=== PATIENT | female | born 1990 | race African-American/Black ===

== ENCOUNTER 2016-08-18 21:55 | Emergency (ER) | payer OTHER, MEDICAID ==
[~2016-08-18] VITALS: Ht 162.6 cm; Wt 120.0 kg
[~2016-08-18 21:55] MED LIST: BACT2OIN TOP; CEPH500C3 PO; [UNRECOGNIZED DRUG - REMARK] PO
[2016-08-18 22:00] VITALS: BP 138/104; PULSE 74; RESP 16; TEMP 98.7; O2SAT 98
[2016-08-18] MEDS ORDERED: SODIUM CHLORIDE 0.9% FLUSH 5 ML FLUSH IVF PRN (22:00)
[2016-08-18 22:04] VITALS: RESP 16; O2SAT 98
[2016-08-18 22:37] LABS: AUTOMATED NEUTROPHIL # 5.9 TH/MM3 (1.8-7.7); BASOPHIL # 0.1 TH/MM3 (0-0.2); BASOPHIL % 0.5 % (0.0-2.0); EOSINOPHIL % 0.3 % (0.0-4.0); HEMATOCRIT 36.6 % (35.0-46.0); HEMO FLAGS DIFF FINAL; LYMPH % 40.5 % (9.0-44.0); LYMPHOCYTE # 4.4 TH/MM3 (1.0-4.8); MEAN CELL VOLUME 77.2 FL (80.0-100.0); MEAN CORPUSCULAR HEMOGLOBIN 26.9 PG (27.0-34.0); MEAN CORPUSCULAR HGB CONC 34.8 % (32.0-36.0); MONO % 4.5 % (0.0-8.0); NEUT % 54.2 % (16.0-70.0); PLATELET COUNT 299 TH/MM3 (150-450); RED BLOOD COUNT 4.74 MIL/MM3 (4.00-5.30); WHITE BLOOD COUNT 10.8 TH/MM3 (4.0-11.0)
[2016-08-18 22:38] LABS: APTT (PATIENT) 28.9 SEC (24.3-30.1); PROTHROMBIN TIME - PATIENT 11.4 SEC (9.8-11.6)
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
[2016-08-18] MEDS ORDERED: IOHEXOL 350 MG/ML 10 ML VIAL (for RAD DIAG) IV ONE (23:26)
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
[2016-08-18 23:39] LABS: ANION GAP 6 MEQ/L (5-15); BICARBONATE 24.2 MEQ/L (21.0-32.0); BLOOD UREA NITROGEN 9 MG/DL (7-18); CHLORIDE 109 MEQ/L (98-107); GLOMERULAR FILTRATION RATE 94 ML/MIN (>89); POTASSIUM 3.7 MEQ/L (3.5-5.1); SODIUM (NA) 139 MEQ/L (136-145)
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
[2016-08-18 23:42] LABS: ALKALINE PHOSPHATASE 68 U/L (45-117); ALT (GPT) 13 U/L (10-53); AST (GOT) 12 U/L (15-37); TOTAL BILIRUBIN ADULT 0.6 MG/DL (0.2-1.0)
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
[2016-08-19] MEDS ORDERED: NAPR500 PO (01:06)
== END 2016-08-19 02:04 | disposition home or self-care (01) ==
LOC: NEPE 21:55
DX: M54.2 Cervicalgia (principal); I10 Essential (primary) hypertension; F17.210 Nicotine dependence, cigarettes, uncomplicated; F10.10 Alcohol abuse, uncomplicated
CPT/HCPCS: 70450; 71010; 71250; 72125; 72131; 74177; 80053; 84703; 85025; 85610; 85730; 86850; 86900; 86901; 99284; Q9967; 82435; 82565; 82947; 84132; 84295; 84520

== ENCOUNTER 2017-03-24 17:42 | Emergency (ER) | payer MEDICAID ==
[~2017-03-24] VITALS: Ht 165.1 cm; Wt 115.0 kg
[~2017-03-24 17:42] MED LIST changes: -BACT2OIN TOP; -CEPH500C3 PO; +NAPR500 PO; -[UNRECOGNIZED DRUG - REMARK] PO
[2017-03-24 17:44] VITALS: BP 183/123; PULSE 88; RESP 20; TEMP 98.6; O2SAT 99
--- NOTE | 2017-03-24 17:58 | PD ---
HPI Chief Complaint: Hypertension Time Seen by Provider: 17:57 Travel History International Travel<30 days: No Contact w/Intl Traveler<30days: No Traveled to known affect area: No History of Present Illness HPI 26-year-old female came to the emergency room with history of headache, neck pain and hypertension. Patient says the headache has been going on for past few days and today she was at work in [employer] when she got dizzy and almost passed out. When she came here her blood pressure was 183 systolic to 1 teens diastolic. Patient says she has history of hypertension but not on any medications since she does not have a primary care right now. She has an appointment with a primary care physician in 2 weeks but meanwhile she has been symptomatic with the high blood pressure. REPLACED BY [facility] Past Medical History Narrative Medical List of her past medical, surgical, social and family history is reviewed from the nursing note. Cardiovascular Problems: Yes (HTN) Diminished Hearing: No Hypertension: Yes ?: Not LMP: 03/24/17 : 8 Para: 3 Miscarriage: 5 Past Surgical History Section: No Gynecologic Surgery: Yes ( cervical cerclage) Social History Alcohol Use: Yes Tobacco Use: Yes (3-4 PER DAY) Substance Use: No Allergies-Medications (Allergen,Severity, Reaction): Coded Allergies: No Known Allergies (Unverified , 03/24/17) Comments No known drug allergies. Reported Meds & Prescriptions Reported Meds & Active Scripts Active Lisinopril 10 Mg Tab 10 Mg PO DAILY Narrative Medication List of her home medications reviewed from the nursing note. Review of Systems Except as stated in HPI: all other systems reviewed are Neg Physical Exam Narrative GENERAL: Awake, alert, obese, mild distress SKIN: Focused skin assessment warm/dry. HEAD: Atraumatic. Normocephalic. EYES: Pupils equal and round. No scleral icterus. No injection or drainage. ENT: No nasal bleeding or discharge. Mucous membranes pink and moist. NECK: Trachea midline. No JVD. CARDIOVASCULAR: Regular rate and rhythm. No murmur appreciated. RESPIRATORY: No accessory muscle use. Clear to auscultation. Breath sounds equal bilaterally. GASTROINTESTINAL: Abdomen soft, non-tender, nondistended. Hepatic and splenic margins not palpable. MUSCULOSKELETAL: No obvious deformities. No clubbing. No cyanosis. No edema. NEUROLOGICAL: Awake and alert. No obvious cranial nerve deficits. Motor grossly within normal limits. Normal speech. PSYCHIATRIC: Appropriate mood and affect; insight and judgment normal. Data Data Last Documented VS Vital Signs Date Time Temp Pulse Resp B/P (MAP) Pulse Ox O2 Delivery O2 Flow Rate FiO2 03/24/17 19:29 03/24/17 19:12 71 18 99 Room Air 03/24/17 17:44 98.6 Orders Orders Lisinopril (Prinivil) (03/24/17 18:15) Basic Metabolic Panel (Bmp) (03/24/17 18:09) Labs Laboratory Tests Test 03/24/17 18:15 Blood Urea Nitrogen 9 MG/DL Creatinine 0.68 MG/DL Random Glucose 92 MG/DL Calcium Level 8.6 MG/DL Sodium Level 139 MEQ/L Potassium Level 3.6 MEQ/L Chloride Level 107 MEQ/L Carbon Dioxide Level 24.9 MEQ/L Anion Gap 7 MEQ/L Estimat Glomerular Filtration Rate 125 ML/MIN MDM Medical Decision Making Medical Screen Exam Complete: Yes Emergency Medical Condition: Yes Medical Record Reviewed: Yes Differential Diagnosis Essential hypertension, morbid obesity, poor compliance Narrative Course 7:30 PM patient was given 10 mg of lisinopril and her blood pressure is slowly going down. I just saw her walking back into her room from the restroom and she was more steady on her feet. Procedures EKG Prior to Arrival: No Diagnosis Primary Impression: Hypertension Qualified Codes: I10 - Essential (primary) hypertension Additional Impressions: Headache Qualified Codes: R51 - Headache Poor compliance with medication Referrals: Primary Care Physician Additional Instructions: Please take the medications like is supposed to without stopping them. ER is not the place to get prescription refills or get chronic illness treated. Should really have a primary care who should continue prescribing a medication and do time he follow up's. However if symptoms worsen please return to the ER. Keep a log for your blood pressure prior to seeing your primary care. Med/Other Pt SpecificInfo: Prescription(s) given Scripts Lisinopril (Lisinopril) 10 Mg Tab 10 MG PO DAILY, #30 TAB 0 Refills Prov: Marian Hyde MD 03/24/17 Disposition: 01 DISCHARGE HOME Condition: Stable Marian Hyde MD Mar 24, 2017 17:57
[2017-03-24 18:07] VITALS: BP 176/111; PULSE 83; RESP 20
[2017-03-24] MEDS ORDERED: LISINOPRIL 10 MG TAB PO ONE (18:15)
[2017-03-24 19:11] LABS: BICARBONATE 24.9 MEQ/L (21.0-32.0); POTASSIUM 3.6 MEQ/L (3.5-5.1)
[2017-03-24 19:12] VITALS: BP 155/94; PULSE 71; RESP 18; O2SAT 99
[2017-03-24] MEDS ORDERED: LISI10TA3 PO (19:21)
== END 2017-03-24 19:35 | disposition home or self-care (01) ==
LOC: NEPD 17:42
DX: I10 Essential (primary) hypertension (principal); R51 Headache; M54.2 Cervicalgia; Z72.0 Tobacco use
CPT/HCPCS: 80048; 99283

== ENCOUNTER 2017-08-17 22:13 | Emergency (ER) | payer MEDICAID ==
[2017-08-17] MEDS: LISINOPRIL 10 MG TAB PO (22:57)
[2017-08-17] MEDS: PROCHLORPERAZINE INJ 10 MG/2 ML VIAL IV PUSH (23:06)
[2017-08-18] MEDS: KETOROLAC TROMETHAMINE 30 MG/ML (IVP) VIAL IV PUSH (01:31)
== END 2017-08-18 02:50 | disposition home or self-care (01) ==
LOC: NEPE 22:13
DX: R51 Headache (principal); R11.0 Nausea; I10 Essential (primary) hypertension; F17.200 Nicotine dependence, unspecified, uncomplicated
CPT/HCPCS: 96374; 96375; 99284-25

== ENCOUNTER 2017-09-10 08:13 | Emergency (ER) | payer MEDICAID ==
[~2017-09-10] VITALS: Ht 165.1 cm; Wt 105.0 kg
[~2017-09-10 08:13] MED LIST changes: +LISI10TA3 PO; -NAPR500 PO
[2017-09-10 08:14] VITALS: BP 146/79; PULSE 88; RESP 14; TEMP 98.3; O2SAT 99
[2017-09-10] MEDS ORDERED: DOXY100C PO (09:21)
--- NOTE | 2017-09-10 09:21 | PD ---
HPI Chief Complaint: Skin Problem Time Seen by Provider: 09:09 Travel History International Travel<30 days: No Contact w/Intl Traveler<30days: No Traveled to known affect area: No History of Present Illness HPI The patient is a 27-year-old [place] female who presents to the emergency department for a lesion to the right groin. The patient states she had unprotected sex 2 weeks ago, now complains of a lesion on the right inguinal canal which is approximately 1 inch in diameter, slightly elevated, nonpleuritic, associated mild pain in the right inguinal canal. The patient denies any vaginal discharge or bleeding. She denies any history genital warts. She days any drainage from the affected area. She denies any associated fever, chills, or sweats. She denies nausea, vomiting, abdominal pain, or back pain. PFSH Past Medical History Cardiovascular Problems: Yes (HTN) Diminished Hearing: No Hypertension: Yes ?: Unknown LMP: 08/08/17 : 8 Para: 3 Miscarriage: 5 Past Surgical History Section: No Gynecologic Surgery: Yes ( cervical cerclage) Social History Alcohol Use: Yes Tobacco Use: Yes (3-4 PER DAY) Substance Use: No Allergies-Medications (Allergen,Severity, Reaction): Coded Allergies: No Known Allergies (Unverified , 03/24/17) Reported Meds & Prescriptions Reported Meds & Active Scripts Active Lisinopril 10 Mg Tab 10 Mg PO DAILY Lisinopril 10 Mg Tab 10 Mg PO DAILY Review of Systems Except as stated in HPI: all other systems reviewed are Neg General / Constitutional: No: Fever Gastrointestinal: No: Nausea, Vomiting, Abdominal Pain Genitourinary: No: Dysuria, Discharge Musculoskeletal: No: Myalgias Skin: Positive Rash, Positive Lumps Physical Exam Narrative GENERAL: Awake, alert, 27-year-old female appears her stated age and is in no acute respiratory distress. SKIN: Focused skin assessment warm/dry. HEAD: Atraumatic. Normocephalic. EYES: Pupils equal and round. No scleral icterus. No injection or drainage. ENT: No nasal bleeding or discharge. Mucous membranes pink and moist. NECK: Trachea midline. No JVD. GASTROINTESTINAL: Abdomen soft, non-tender, nondistended. No rebound tenderness. Genitourinary: The exam was performed in the presence of a female nurse. External examination reveals a 2 cm circular cauliflower-like lesion with no underlying fluctuance. Right inguinal lymphadenopathy noted. No drainage noted. MUSCULOSKELETAL: No obvious deformities. No clubbing. No cyanosis. No edema. NEUROLOGICAL: Awake and alert. No obvious cranial nerve deficits. Motor grossly within normal limits. Normal speech. PSYCHIATRIC: Appropriate mood and affect; insight and judgment normal. Data Data Last Documented VS Vital Signs Date Time Temp Pulse Resp B/P (MAP) Pulse Ox O2 Delivery O2 Flow Rate FiO2 09/10/17 08:14 98.3 88 14 146/79 (101) 99 MDM Medical Decision Making Medical Screen Exam Complete: Yes Emergency Medical Condition: Yes Medical Record Reviewed: Yes Differential Diagnosis Differential diagnosis includes genital warts, lymphogranuloma venerum, syphilis , PID, STI, cervicitis, abscess, folliculitis. Narrative Course The patient has a cauliflower-like lesion located on the medial aspect of the right thigh just distal to the inguinal canal which is nonpainful but associated with inguinal lymphadenopathy. The patient was administered Rocephin 250 mg IM and will be placed on doxycycline 100 mg twice a day for 10 days. She is advised that this possibly could be genital warts versus lymphogranuloma venereum and she needs to follow-up with the [facility]. Diagnosis Primary Impression: Genital lesion, female Patient Instructions: General Instructions Additional Instructions: Follow-up with the [facility]. Doxycycline as directed. Return if symptoms worsen or progress. Med/Other Pt SpecificInfo: Prescription(s) given Scripts Doxycycline Hyclate (Doxycycline Hyclate) 100 Mg Cap 100 MG PO BID for Infection, #20 CAP 0 Refills Prov: Kale Bernabe MD 09/10/17 Disposition: 01 DISCHARGE HOME Condition: Stable Kale Bernabe MD Sep 10, 2017 09:21
[2017-09-10] MEDS ORDERED: LIDOCAINE HCL 1% 50 ML VIAL IM ONE (09:30)
[2017-09-10] MEDS ORDERED: cefTRIAXone 250 MG VIAL IM ONE (09:30)
== END 2017-09-10 09:56 | disposition home or self-care (01) ==
LOC: NEPD 08:13
DX: L98.8 Other specified disorders of the skin and subcutaneous tissue (principal); R59.0 Localized enlarged lymph nodes; I10 Essential (primary) hypertension; Z72.0 Tobacco use
CPT/HCPCS: 96372; 99283; J0696